=== PATIENT | female | born 1975 | race Caucasian/White ===

== ENCOUNTER 2022-01-08 11:01 | Emergency (ER) | payer BC ==
[~2022-01-08] VITALS: Ht 162.6 cm; Wt 75.0 kg
[2022-01-08 11:02] VITALS: BP 135/86
[2022-01-08] MEDS ORDERED: LORazepam 1 MG tablet PO ONE (12:10)
[2022-01-08 12:39] LABS: CLARITY,URINE CLOUDY (Clear); COLOR,URINE YELLOW (Yellow); GLUCOSE, URINE NEGATIVE (Neg); KETONES,URINE 40 mg/dl (Neg); LEUKOCYTE ESTERASE ,URINE NEGATIVE (Neg); NITRITES, URINE NEGATIVE (Neg); OCCULT BLOOD,URINE NEGATIVE (Neg); PH,URINE 5.5 (4.8-8.0); PROTEIN,URINE TRACE mg/dl (Neg); UROBILINOGEN,URINE 0.2 E.U/dL (0.2-1.0)
[2022-01-08 12:39] LABS: BASOPHILS % (AUTO) 0.5 % (0-1); EOSINOPHILS % (AUTO) 0.4 % (0-6); HEMATOCRIT 45.3 % (35.0-45.0); HEMOGLOBIN 15.2 g/dl (12.0-16.0); LYMPHOCYTES # (AUTO) 1.2 X10'3 (1.1-4.8); LYMPHOCYTES % (AUTO) 16.5 % (21-51); MEAN CORPUSCULAR HEMOGLOBIN 30.5 PG (27.0-31.0); MEAN CORPUSCULAR HGB CONC 33.4 g/dL (33.0-36.5); MEAN CORPUSCULAR VOLUME 91.3 FL (78-98); MEAN PLATELET VOLUME 8.4 FL (7.4-10.4); MONOCYTES # (AUTO) 0.5 X10'3 (0-0.9); MONOCYTES % (AUTO) 7.1 % (2-12); NEUTROPHILS # (AUTO) 5.5 X10'3 (1.8-7.7); NEUTROPHILS % (AUTO) 75.5 % (42-75); PLATELET COUNT 275 X10'3 (140-440); RED BLOOD COUNT 4.97 X10'6 (4.20-5.60); RED CELL DISTRIBUTION WIDTH 14.2 % (11.5-14.5); WHITE BLOOD COUNT 7.3 X10'3 (4.5-11.0)
[2022-01-08 12:41] LABS: UA COLLECTION TYPE NON-SPECIFIED
[2022-01-08 12:45] LABS: BACTERIA,URINE 1+ /HPF (Neg); MUCUS STRANDS MANY /LPF (Neg); RBC,URINE NONE SEEN /HPF (0-2); SQUAMOUS EPITHELIAL CELL,UR MODERATE /LPF (FEW); WBC,URINE 0-4 /HPF (0-4)
[2022-01-08 12:49] LABS: HCG SERUM QL NEGATIVE
[2022-01-08 12:50] LABS: ALANINE AMINOTRANSFERASE 47 U/L (12-78); ALBUMIN 4.2 G/DL (3.4-5.0); ALBUMIN/GLOBULIN RATIO 1.1 (1.1-1.5); ALKALINE PHOSPHATASE 49 IU/L (46-116); ANION GAP 10 (8-16); ASPARTATE AMINO TRANSFERASE 22 U/L (10-37); BILIRUBIN,TOTAL 0.4 MG/DL (0.1-1.0); BLOOD UREA NITROGEN 9 MG/DL (7-18); BUN/CREATININE RATIO 11.1 (6.6-38.0); CALCIUM 8.9 MG/DL (8.5-10.1); CHLORIDE 107 MMOL/L (99-107); CREATININE 0.81 MG/DL (0.40-0.90); GLUCOSE 113 MG/DL (70-104); POTASSIUM 3.9 MMOL/L (3.5-5.1); SODIUM 143 MMOL/L (135-145); TOTAL CARBON DIOXIDE 25.7 MMOL/L (24-32); eGFR 76 ML/MIN
[2022-01-08] MEDS ORDERED: LORA-269 PO (13:38)
== END 2022-01-08 13:54 | disposition home or self-care (01) ==
LOC: ER 11:01
DX: F41.9 Anxiety disorder, unspecified (principal); R51.9 Headache, unspecified; R11.0 Nausea; F41.0 Panic disorder [episodic paroxysmal anxiety]; K31.84 Gastroparesis; K21.9 Gastro-esophageal reflux disease without esophagitis; R20.0 Anesthesia of skin; E55.9 Vitamin D deficiency, unspecified; Z88.8 Allergy status to other drugs, medicaments and biological substances; Z79.899 Other long term (current) drug therapy
CPT/HCPCS: 36415; 70450; 80053; 81001; 84703; 85025; 99284

== ENCOUNTER 2022-07-10 20:01 | Emergency (ER) | payer BC ==
[~2022-07-10] VITALS: Ht 162.6 cm; Wt 65.9 kg
[~2022-07-10 20:01] MED LIST: LORA-269 PO
[2022-07-10 20:14] VITALS: BP 138/89
[2022-07-10] MEDS ORDERED: ondansetron 4mg rapidly disintigrating tab PO ONE (22:00)
[2022-07-10] MEDS ORDERED: HYDROcodone/acetaminophen 5mg/325mg tablet PO ONE (22:00)
[2022-07-10] MEDS ORDERED: HYDR-3965 PO (22:21)
[2022-07-10] MEDS ORDERED: ONDA4TAB12 PO (22:22)
--- NOTE | 2022-07-10 23:07 | NUR ---
jacob to rt ankle per vo from er provider
== END 2022-07-10 23:08 | disposition home or self-care (01) ==
LOC: ER 20:01
DX: S82.492A Other fracture of shaft of left fibula, initial encounter for closed fracture (principal); K21.9 Gastro-esophageal reflux disease without esophagitis; F41.9 Anxiety disorder, unspecified; Z79.899 Other long term (current) drug therapy; Z88.8 Allergy status to other drugs, medicaments and biological substances; W18.39XA Other fall on same level, initial encounter; Y93.89 Activity, other specified; Y92.89 Other specified places as the place of occurrence of the external cause; Y99.8 Other external cause status
CPT/HCPCS: 29515; 73610; 99283; A6449

== ENCOUNTER → 2022-11-07 | Emergency (ER) | payer BC ==
[~2022-11-07] VITALS: Ht 162.6 cm; Wt 68.0 kg
[~2022-11-07] MED LIST changes: +ONDA4TAB12 PO
[2022-11-07 14:07] VITALS: BP 153/98
[2022-11-07 14:23] LABS: BASOPHILS % (AUTO) 0.6 % (0-1); EOSINOPHILS # (AUTO) 0.1 X10'3 (0-0.9); EOSINOPHILS % (AUTO) 1.1 % (0-6); HEMATOCRIT 43.1 % (35.0-45.0); HEMOGLOBIN 14.3 g/dl (12.0-16.0); LYMPHOCYTES # (AUTO) 1.9 X10'3 (1.1-4.8); LYMPHOCYTES % (AUTO) 33.7 % (21-51); MEAN CORPUSCULAR HEMOGLOBIN 30.1 PG (27.0-31.0); MEAN CORPUSCULAR HGB CONC 33.3 g/dL (33.0-36.5); MEAN CORPUSCULAR VOLUME 90.5 FL (78-98); MEAN PLATELET VOLUME 7.3 FL (7.4-10.4); MONOCYTES # (AUTO) 0.5 X10'3 (0-0.9); MONOCYTES % (AUTO) 9.1 % (2-12); NEUTROPHILS # (AUTO) 3.1 X10'3 (1.8-7.7); NEUTROPHILS % (AUTO) 55.5 % (42-75); PLATELET COUNT 321 X10'3 (140-440); RED BLOOD COUNT 4.76 X10'6 (4.20-5.60); RED CELL DISTRIBUTION WIDTH 15.1 % (11.5-14.5); WHITE BLOOD COUNT 5.5 X10'3 (4.5-11.0)
[2022-11-07 14:39] LABS: ALANINE AMINOTRANSFERASE 35 U/L (12-78); ALBUMIN/GLOBULIN RATIO 1.1 (1.1-1.5); ALKALINE PHOSPHATASE 64 IU/L (46-116); ANION GAP 7 (8-16); ASPARTATE AMINO TRANSFERASE 19 U/L (10-37); BILIRUBIN,TOTAL 0.4 MG/DL (0.1-1.0); BLOOD UREA NITROGEN 11 MG/DL (7-18); BUN/CREATININE RATIO 15.1 (6.6-38.0); CALCIUM 9.4 MG/DL (8.5-10.1); CHLORIDE 103 MMOL/L (99-107); CREATININE 0.73 MG/DL (0.40-0.90); GLUCOSE 122 MG/DL (70-104); POTASSIUM 4.1 MMOL/L (3.5-5.1); SODIUM 138 MMOL/L (135-145); TOTAL CARBON DIOXIDE 28.3 MMOL/L (24-32); TOTAL PROTEIN 7.7 G/DL (6.4-8.2); eGFR 85 ML/MIN
[2022-11-07 14:45] LABS: MAGNESIUM 2.1 MG/DL (1.5-2.4)
== END | disposition home or self-care (01) ==
LOC: ER 14:00
DX: R07.89 Other chest pain (principal); E78.00 Pure hypercholesterolemia, unspecified; K21.9 Gastro-esophageal reflux disease without esophagitis; F41.9 Anxiety disorder, unspecified; Z79.899 Other long term (current) drug therapy
CPT/HCPCS: 36415; 71045; 80053; 83735; 83880; 84484; 85025; 93005; 99285

== ENCOUNTER 2025-09-21 20:40 | Emergency (ER) | payer BC ==
[~2025-09-21] VITALS: Ht 162.6 cm; Wt 64.9 kg
[~2025-09-21 20:40] MED LIST changes: +ONDA-243 PO; -ONDA4TAB12 PO
[2025-09-21 20:49] VITALS: TEMP 97.8
--- NOTE | 2025-09-21 21:00 | ELECTROCARDIOGRAPH REPORT ---
[facility] Test Date: 2025-09-21 Test Time: 20:59:29 Pat Name: ESTHER KENT Department: EMERGENCY ROOM Room: Gender: F Chicken Handler: : [id number] Requested By: ANABEL GONGORA Order Number: [id number] Reading MD: Dr. Joshua Mccray Measurements Intervals [place] Rate: 84 P: 66 CA: 125 QRS: 26 QRSD: 94 T: 40 QT: 339 QTc: 401 Interpretive Statements Sinus rhythm Probable left atrial enlargement RSR' in V1 or V2, right VCD or RVH Electronically Signed On 09-21-2025 21:21:[address] Joshua Mccray Please click the below link to view image of tracing.
[2025-09-21 21:33] LABS: MEAN PLATELET VOLUME 7.7 FL (7.4-10.4); RED CELL DISTRIBUTION WIDTH 15.8 % (11.5-14.5)
[2025-09-21 21:46] LABS: CREATININE 0.57 MG/DL (0.40-0.90); PRO BRAIN NATRIURETIC PEPTIDE < 30 PG/ML (0-125); TOTAL CARBON DIOXIDE 30.2 MMOL/L (24-32); eCRCL 103 ML/MIN; eGFR > 90 ML/MIN
--- NOTE | 2025-09-21 21:46 | RADIOLOGY REPORT ---
CHEST RADIOGRAPH INDICATION: CP TECHNIQUE: Single frontal view of the chest was obtained COMPARISON: CHEST,SINGLE VIEW on DOS: 11/07/22 FINDINGS: Lines and Tubes: None Lungs: Clear Pleura: No effusion. No pneumothorax. Cardiomediastinal contours: Unremarkable Bones: Unremarkable IMPRESSION: 1. No acute disease.
[2025-09-21 22:41] VITALS: BP 133/96; PULSE 84; O2SAT 98
--- NOTE | 2025-09-22 00:03 | Physician Documentation ---
History of Present Illness ~ Chief Complaint: Syncope Stated Complaint: HEADACHE Time Seen by MD: 23:59 Primary Medical Doctor: [facility] HPI Patient presents to the emergency room for evaluation of presyncopal symptoms along with vision changes associated with the headache. Distant history of migraines. She does endorse vision changes with her previous migraines. She did take two Tylenol today for her headache which is improving and she does not describe with a headache that has thunderclap/worse headache of her life. She is sitting today at her desk when she started to have an unusual blurring of her vision leading to presyncopal feeling and she reports that her coworkers state that she turned why that has a ghost. She had denies any palpitations/chest pain. Symptoms resolved and she went home in the headache got a bit worse prompting her to take some Tylenol and that has the all this was unusual she decided to come in to be evaluated. She had denies one-sided symptoms. Vision normal at this juncture Medication Reconciliation Allergies: Coded Allergies: naproxen (Verified Allergy, Severe, swelling, 01/08/22) Scheduled PRN Lorazepam (Ativan), 1 TAB PO Q8H PRN for for anxiety/agitation ONDANSETRON ODT 4mg tablet (Ondansetron Odt), 1 TABLET PO Q6H PRN for nausea/vomiting Past Medical History Past Medical History: *GI/HEPATOBILIARY*, GERD, Anxiety Past Surgical History: no surgical history Drug Use: none Lives with: Spouse Lives In: Home Occupation: employed Review of Systems ROS All review of systems negative except as per HPI Physical Exam Vital Signs: Temperature: 97.8, Heart Rate: 84, Respiratory Rate: 16, BP: 133/96, Pulse Oximetry: 98, Weight: 64.860 Oxygen Flow Rate: 0 Physical Exam General: Patient is awake, alert, oriented x4 in no acute distress and well appearing.~ Head: Normocephalic and atraumatic. Eyes: Conjunctival normal. EOMI. PERRL. ENT: Mucous membranes moist. Neck: Supple, trachea is midline. Chest: Clear to auscultation bilaterally without rales, rhonchi, or wheezes. There is no accessory muscle use or retractions. Cardiac: RRR without murmurs, gallops, or rubs. Progress Results/Orders Results/Orders Orders - EVELIO LANTIGUA MD Chest,Single View (09/21/25 21:33) Monitor (09/21/25 20:58) Saline Lock (09/21/25 20:58) Oxygen (09/21/25 20:58) Electrocardiogram (09/21/25 20:58) Hs Troponin I W Calculations (09/21/25 23:58) Completed Orders - EVELIO LANTIGUA MD Chest,Single View (09/21/25 21:33) Cbc/Diff (09/21/25 20:58) BMP (09/21/25 20:58) PBNP (09/21/25 20:58) Electrocardiogram (09/21/25 20:58) Hs Troponin I W Calculations (09/21/25 20:58) Hs Troponin I W Calculations (09/21/25 22:58) Vital Signs 09/21/25 09/21/25 20:49 22:41 Temp 97.8 Pulse 87 84 Resp 16 16 B/P (MAP) 126/87 133/96 (108) Pulse Ox 100 98 O2 Flow Rate 0 0 Laboratory Tests Test 09/21/25 20:55 09/21/25 21:03 09/21/25 23:15 Glucometer 119 H White Blood Count 6.9 Red Blood Count 4.86 Hemoglobin 13.2 Hematocrit 40.2 Mean Corpuscular Volume 82.6 Mean Corpuscular Hemoglobin 27.2 Mean Corpuscular Hemoglobin Concent 33.0 Red Cell Distribution Width 15.8 H Platelet Count 353 Mean Platelet Volume 7.7 Neutrophils (%) (Auto) 61.2 Lymphocytes (%) (Auto) 27.2 Monocytes (%) (Auto) 9.9 Eosinophils (%) (Auto) 1.2 Basophils (%) (Auto) 0.5 Neutrophils # (Auto) 4.2 Lymphocytes # (Auto) 1.9 Monocytes # (Auto) 0.7 Eosinophils # (Auto) 0.1 Basophils # (Auto) 0.0 CBC Comment Sodium Level 141 Potassium Level 3.7 Chloride Level 107 Carbon Dioxide Level 30.2 Anion Gap 4 L Blood Urea Nitrogen 15 Creatinine 0.57 Estimated GFR/1.73 m2 > 90 BUN/Creatinine Ratio 26.3 H Glucose Level 105 H Calcium Level 8.9 Troponin I High Sensitivity 13 12 Pro-B-Type Natriuretic Peptide < 30 Albumin 3.6 Chemistry Comments Troponin I High Sens Percent Delta 7 Troponin I Hi Sens Absolute Change -1 EKG/XRAY/CT/US/VASC/MRI EKG : Additional Comment EKG interpreted by myself shows time of 2058, rate 84, sinus rhythm, normal axis, no ST changes Chest X-Ray : Additional Comments Exam: CHEST,SINGLE VIEW CHEST RADIOGRAPH INDICATION: CP TECHNIQUE: Single frontal view of the chest was obtained COMPARISON: CHEST,SINGLE VIEW on DOS: 11/07/22 FINDINGS: Lines and Tubes: None Lungs: Clear Pleura: No effusion. No pneumothorax. Cardiomediastinal contours: Unremarkable Bones: Unremarkable IMPRESSION: 1. No acute disease. Medical Decision Making Additional information obtaine: old records Findings Patient presents to the emergency room with near syncopal episode along with some blurred vision and headache which is improving. Differentials include but are not limited to cardiac arrhythmia, ACS, stroke, panic attack, vasovagal therefore emergent labs and imaging indicated. Chest x-ray reassuring as his EKG. Labs reassuring and troponins negative x2. Neurologic exam is reassuring. No actual syncope. Given patient's lack of risk factors I do not feel she requires admission for cardiogenic syncope. Neurologic exam is reassuring and he had not feel she is suffering from acute intracranial process/stroke. BUN creatinine ratio suggest mild dehydration and patient is drinking water and feeling like herself. Headache greatly improved and he had not believe she is suffering from acute emergent intracranial bleed. The need to follow up with her doctor discussed as well as ER precautions regarding actual syncope. Differential Dx:Considerations: Include: anemia, CVA, cerebral occlusion, cerebral thrombosis, dehydration, dysrhythmia, electrolyte disorder, e ncephalopathy, hypoglycemia, hypovolemia, labyrinthitis, Meniere's disease, myocardial infarction, pulmonary embolus, TIA, vasovagal, VBI, vertigo central, vertigo peripheral, vestibular neuronitis, other Departure Disposition: HOME / SELF CARE / HOMELESS Impression: Primary Impression: Pre-syncope Condition: Stable Discharge Instructions: Near-Syncope Referrals: NO PRIMARY CARE PROVIDER (PCP) Signature Scribe Signature: No scribe Attestation: The note accurately reflects work and decisions made by me.Evelio Lantigua MD 09/22/25 00:26 EVELIO LANTIGUA MD Sep 22, 2025 00:03
[2025-09-22 00:30] VITALS: RESP 14
== END 2025-09-22 01:02 | disposition home or self-care (01) ==
LOC: ER 20:41
DX: R55 Syncope and collapse (principal); K21.9 Gastro-esophageal reflux disease without esophagitis; F41.9 Anxiety disorder, unspecified; Z88.6 Allergy status to analgesic agent
CPT/HCPCS: 36415; 71045; 80048; 82948; 83880; 84484; 85025; 93005; 99285